=== PATIENT | female | born 1965 | race Caucasian/White ===

== ENCOUNTER → 2017-12-06 | Outpatient (CLI) | payer BC ==
--- NOTE | 2017-12-07 10:10 | MM ---
Reason for exam: screening (asymptomatic). Last mammogram was performed 7 years ago. History: Patient had first child at age 39. Physical Findings: A clinical breast exam by your physician is recommended on an annual basis and results should be correlated with mammographic findings. MG 3D Screening Mammo W/Cad Bilateral CC and MLO view(s) were taken. Prior study comparison: December 01, 2010, bilateral digital screening mammo w/CAD. November 23, 2008, bilateral digital screening mammogram. There are scattered fibroglandular densities. No significant changes when compared with prior studies. ASSESSMENT: Negative, BI-RAD 1 RECOMMENDATION: Routine screening mammogram of both breasts in 1 year.
== END | disposition home or self-care (01) ==
LOC: RADMAMWWP 14:15
PROVIDERS: ATTEND Internal Medicine
DX: Z12.31 Encounter for screening mammogram for malignant neoplasm of breast (principal)
CPT/HCPCS: 77063; 77067

== ENCOUNTER → 2021-04-21 | Outpatient (CLI) | payer BC ==
--- NOTE | 2021-04-25 09:58 | MM ---
Reason for exam: screening (asymptomatic). Last mammogram was performed 3 years and 4 months ago. History: Patient had first child at age 39. Physical Findings: A clinical breast exam by your physician is recommended on an annual basis and results should be correlated with mammographic findings. MG 3D Screening Mammo W/Cad Bilateral CC and MLO view(s) were taken. Prior study comparison: December 06, 2017, bilateral MG 3d screening mammo w/cad. December 01, 2010, bilateral digital screening mammo w/CAD. There are scattered fibroglandular densities. Finding: There is a typically benign, high, circumscribed oval mass in the posterior position of the left breast on MLO, consistent with probable lymph node. New finding since December 06, 2017 and December 01, 2010. ASSESSMENT: Probably benign, BI-RAD 3 RECOMMENDATION: Follow-up diagnostic mammogram of the left breast in 6 months.
== END | disposition home or self-care (01) ==
LOC: RADMAMWWP 16:01
PROVIDERS: ATTEND Internal Medicine
DX: Z12.31 Encounter for screening mammogram for malignant neoplasm of breast (principal)
CPT/HCPCS: 77063; 77067

== ENCOUNTER → 2021-11-24 | Outpatient (CLI) | payer BC ==
--- NOTE | 2021-11-24 12:07 | MM ---
Reason for Exam: Follow-up at short interval from prior study. Last screening mammogram was performed 7 month(s) ago. Patient History: Menarche at age 12. First Full-Term at age 39. Late child-bearing (after 30). Postmenopausal. Risk Values: Hermila 5 year model risk: 1.7%. NCI Lifetime model risk: 10.9%. Prior Study Comparison: 12/01/2010 Bilateral Screening Mammogram, [facility]. 12/06/2017 Bilateral Screening Mammogram, [facility]. 04/21/2021 Bilateral Screening Mammogram, [facility]. Tissue Density: Left: The breast tissue is almost entirely fat. Findings: 2 small peripheral lateral well-circumscribed nodules under the pectoralis muscle in the left breast. These may be at the edge of field of view on the craniocaudal view. Findings are likely related to benign intermammillary lymph nodes. This is slightly larger than the comparison study. Follow-up exam in 6 months is recommended. Overall Assessment: Probably benign, BI-RAD 3 Management: Diagnostic Mammogram of both breasts in 6 months. A clinical breast exam by your physician is recommended on an annual basis and results should be correlated with mammographic findings. This exam should not preclude additional follow-up of suspicious palpable abnormalities. Results were given to the patient verbally at the time of exam. Electronically signed and approved by: Berlin Gamble D.O. Radiologis
--- NOTE | 2021-11-24 16:49 | BD ---
EXAMINATION TYPE: Axial Bone Density DATE OF EXAM: 11/24/2021 COMPARISON: NONE CLINICAL HISTORY: 56 years year old Female. ICD-10 CODE: M89.9 BONE DISORDER Height: 65 Weight: 250 FRAX RISK QUESTIONS: Secondary Osteoporosis: YES 5. Chronic liver disease: YES, FATTY LIVER RISK FACTORS HISTORY OF: Surgery to Spine HX OF HERNIATED DISC REPAIR ONLY, SURGICAL CUT TO DISC...AT AGE 37 YRS OLD Postmenopausal woman: YES, AT AGE 55 YRS OLD Hyperparathyroidism: NO Adrenal Insufficiency: NO MEDICATIONS: Additional Medications: BP MEDS, VIT D Additional History: HYPERTENSION, HX OF HERNIATED DISC LOWER BACK EXAM MEASUREMENTS: Bone mineral densitometry was performed using the i[employer] System. Bone mineral density as measured about the Lumbar spine is: ----- L1-L4(G/cm2): 1.148 T Score Values are as follows: ----- L1: 0.1 ----- L2: -1.6 ----- L3: 0.2 ----- L4: 0.3 ----- L1-L4: -0.3 Bone mineral density FIRST BONE DENSITY STUDY......BASELINE Bone mineral density about the R hip (g/cm2): 1.013 Bone mineral density about the L hip (g/cm2): 1.072 T Score values are as follows: -----R Neck: -0.9 -----L Neck: -1.3 -----R Total: 0.0 -----L Total: 0.5 Bone mineral density BASELINE STUDY, FIRST DEXA FRAX%s: The graph provided illustrates a 2.3% chance for a major osteoporotic fx and a 0.2% chance fo r the hips probability for fx in 10 years time. IMPRESSION: Normal (Values between +1 and -1 indicate normal bone mass). Consider repeating this study in 5 year s or sooner if there is some new clinical indication. NOTE: T-SCORE=SD OF THE YOUNG ADULT MEAN.
== END | disposition home or self-care (01) ==
LOC: RADBDWWP 11:11
PROVIDERS: ATTEND Internal Medicine
DX: R92.8 Other abnormal and inconclusive findings on diagnostic imaging of breast (principal); M89.9 Disorder of bone, unspecified; Z78.0 Asymptomatic menopausal state
CPT/HCPCS: 77061; 77065; 77080

== ENCOUNTER → 2022-05-22 | Outpatient (CLI) | payer BC ==
--- NOTE | 2022-05-22 09:07 | MM ---
Reason for Exam: Follow-up at short interval from prior study. Last mammogram was performed 1 year(s) and 1 month(s) ago. Patient History: Menarche at age 12. First Full-Term at age 39. Late child-bearing (after 30). Postmenopausal. Risk Values: Hermila 5 year model risk: 1.8%. NCI Lifetime model risk: 10.7%. Tissue Density: There are scattered fibroglandular densities. Findings: Analyzed By CAD. Chronic nodularity left brreast may reflect intramammary lymph nodes. No suspicious calcifications. Overall Assessment: Benign, BI-RAD 2 Management: Diagnostic Mammogram of both breasts in 1 year. A clinical breast exam by your physician is recommended on an annual basis and results should be correlated with mammographic findings. This exam should not preclude additional follow-up of suspicious palpable abnormalities. Results were given to the patient verbally at the time of exam. Electronically signed and approved by: Juan Will M.D. Radiologis
== END | disposition home or self-care (01) ==
LOC: RADMAMWWP 08:44
PROVIDERS: ATTEND Family Medicine
DX: N63.20 Unspecified lump in the left breast, unspecified quadrant (principal); Z78.0 Asymptomatic menopausal state
CPT/HCPCS: 77062; 77066

== ENCOUNTER → 2023-05-23 | Outpatient (CLI) | payer BC ==
--- NOTE | 2023-05-23 09:19 | MM ---
Reason for Exam: Additional evaluation requested from prior study. Last screening mammogram was performed 12 month(s) ago. Patient History: Menarche at age 12. First Full-Term at age 39. Late child-bearing (after 30). Postmenopausal. Risk Values: Hermila 5 year model risk: 1.8%. NCI Lifetime model risk: 10.5%. Tissue Density: There are scattered fibroglandular densities. Findings: Analyzed By CAD. Pattern appears symmetrical and stable. There is some focal asymmetry in the upper outer right breast. No underlying tomographic abnormality is identified. Focal asymmetry is more anterior upper left mediolateral oblique view, no underlying tomographic abnormality is identified. No suspicious groups of microcalcifications, spiculated or lobular masses, architectural distortion or other secondary signs of malignancy are mammographically apparent. Overall Assessment: Benign, BI-RAD 2 Management: Screening Mammogram of both breasts in 1 year. A negative mammogram report should not preclude additional follow up of suspicious palpable abnormalities. Patient should continue monthly self breast exam. A clinical breast exam by your physician is recommended on an annual basis and results should be correlated with mammographic findings. Electronically signed and approved by: Berlin Gamble D.O. Radiologis
== END | disposition home or self-care (01) ==
LOC: RADMAMWWP 08:54
PROVIDERS: ATTEND Family Medicine
DX: R92.323 Mammographic fibroglandular density, bilateral breasts (principal); Z78.0 Asymptomatic menopausal state
CPT/HCPCS: 77062; 77066

== ENCOUNTER → 2024-05-28 | Outpatient (CLI) | payer BC ==
--- NOTE | 2024-05-28 10:30 | MM ---
Reason for Exam: Follow-up at short interval from prior study. Last screening mammogram was performed 12 month(s) ago. Patient History: Menarche at age 12. First Full-Term at age 39. Late child-bearing (after 30). Postmenopausal. Risk Values: Hermila 5 year model risk: 1.9%. NCI Lifetime model risk: 10.2%. Prior Study Comparison: 12/06/2017 Bilateral Screening Mammogram, [facility]. 05/22/2022 Bilateral MG 3D diag mammo w/cad [place], [facility]. 05/23/2023 Bilateral MG 3D diag mammo w/cad [place], [facility]. Tissue Density: There are scattered areas of fibroglandular density. Findings: Analyzed By CAD. The pattern is symmetrical. No significant interval change is evident. No suspicious groups of microcalcifications, spiculated or lobular masses, architectural distortion or other secondary signs of malignancy are mammographically apparent. Overall Assessment: Benign, BI-RAD 2 Management: Screening Mammogram of both breasts in 1 year. A negative mammogram report should not preclude additional follow up of suspicious palpable abnormalities. Patient should continue monthly self breast exam. A clinical breast exam by your physician is recommended on an annual basis and results should be correlated with mammographic findings. Note on Hermila scores and lifetime risk: 1. A Hermila score greater than 3% is considered moderate risk. If this is the case, consider specialist referral to assess eligibility for a risk reducing agent. 2. If overall lifetime risk for the development of breast cancer is 20% or higher, the patient may qualify for future screening with alternating mammogram and breast MRI. [facility], , 05/28/2024 10:27 AM. Electronically signed and approved by: Berlin Gamble D.O. Radiologis
== END | disposition home or self-care (01) ==
LOC: RADMAMWWP 09:55
PROVIDERS: ATTEND Family Medicine
DX: R92.8 Other abnormal and inconclusive findings on diagnostic imaging of breast (principal); Z78.0 Asymptomatic menopausal state; R92.323 Mammographic fibroglandular density, bilateral breasts
CPT/HCPCS: 77062; 77066